=== PATIENT | female | born 1980 | race African-American/Black ===

== ENCOUNTER 2021-05-07 00:04 | Emergency (ER) | payer OTHER ==
[~2021-05-07] VITALS: Ht 170.2 cm; Wt 70.0 kg
[2021-05-07] MEDS ORDERED: MORPHINE SULFATE 4 MG/ML CPJ (NOT FOR IM USE) IV STA (00:35)
[2021-05-07] MEDS ORDERED: FAMOTIDINE 20MG/2ML VIAL IV STA (00:35)
[2021-05-07] MEDS ORDERED: ONDANSETRON 4MG ODT PO STA (00:35)
[2021-05-07] MEDS ORDERED: SODIUM CHLORIDE 0.9% 1,000 ML IV ONE (00:45)
[2021-05-07] MEDS ORDERED: ONDANSETRON HCL 4MG/2ML INJ IV ONE (00:45)
[2021-05-07 01:20] LABS: BASOPHILS % 0.5 % (0.0-2.0); HEMATOCRIT. 42.6 % (36.0-48.0); HEMOGLOBIN. 14.8 g/dL (12.0-16.0); LYMPHOCYTES % 14.5 % (20.0-50.0); MEAN CORPUSCULAR HEMOGLOBIN 32.2 pg (28.0-32.0); MEAN PLATELET VOLUME 7.4 fl (7.4-10.4); MONOCYTES % 3.1 % (2.0-8.0); NEUTROPHILS % 81.9 % (40.0-76.0); PLATELET 330 x1000/uL (130-400); RED BLOOD CELL COUNT 4.58 mill/uL (4.2-5.4)
[2021-05-07 01:25] LABS: CHLORIDE 108 mEq/L (98-107)
[2021-05-07 01:29] LABS: ETHANOL BLOOD < 10 mg/dL
[2021-05-07 01:30] LABS: HCG SCREEN NEGATIVE
[2021-05-07 02:59] VITALS: BP 133/74
== END 2021-05-07 03:00 | disposition home or self-care (01) ==
LOC: ER 00:04
DX: A08.4 Viral intestinal infection, unspecified (principal); R11.2 Nausea with vomiting, unspecified; R19.7 Diarrhea, unspecified
CPT/HCPCS: 36415; 80053; 80320; 83690; 84703; 85025; 96361; 96374; 96375; 99284; J2270; J2405; J3490; J7030; G0480